=== PATIENT | female | born 1990 | race Hispanic/Latino ===

== ENCOUNTER 2016-11-15 07:26 | Emergency (ER) | payer SELFPAY ==
--- NOTE | 2016-11-15 08:02 | ED PDOC ---
Arrival/HPI - General Historian: Patient - History of Present Illness Time/Duration: < week Symptom Onset: Gradual Symptom Course: Worsening Quality: Pressure Severity Level: Moderate Activities at Onset: Rest Context: Home <Maria Elena Gipson - Last Filed: 11/15/16 09:51> <Dallin Funez - Last Filed: 11/15/16 14:43> - General Chief Complaint: Cough, Cold, Congestion Time Seen by Provider: 11/15/16 07:35 - History of Present Illness Narrative History of Present Illness (Text): 11/15/16 07:59 This is a 26Y F with no PMH here for cough and congestion x 4 days. The cough is described as dry, but feels congestion in her chest. She used Robitussin without relief. Patient states all her children were sick at home with similar symptoms and received antibiotics. She also reports having chills and one episode of diarrhea, but denies nausea/vomiting, sinus tenderness, sore throat or rhinorrhea. She denies any recent travel. The patient also reports of having vaginal discharge x 2 weeks. She says it is white in color and is fishy in odor. She denies sexual activity for quite some time or multiple partners. Her periods are irregular and her LMP was on 5 weeks ago. She has not seen a dispensary clerk since the of her 3rd child who is 2yrs old. She denies any itching, dysuria, frequency or hematuria. She states she has to use a pad due to the amount of discharge and used a douche yesterday to "help clean herself out". (Maria Elena Gipson) Past Medical History - Provider Review Nursing Documentation Reviewed: Yes - Travel History Have you recently traveled outside [place] w/in the past 3 mons?: No - Past History Past History: No Previous - Past Medical History Past Medical History: No Previous <Maria Elena Gipson - Last Filed: 11/15/16 09:51> Family/Social History - Physician Review Nursing Documentation Reviewed: Yes Family/Social History: Diabetes, Hypertension Hx Alcohol Use: No Hx Substance Use: No <Maria Elena Gipson - Last Filed: 11/15/16 09:51> Allergies/Home Meds <Maria Elena Gipson - Last Filed: 11/15/16 09:51> <Dallin Funez - Last Filed: 11/15/16 14:43> Allergies/Adverse Reactions: Allergies clindamycin Allergy (Verified 11/15/16 08:00) ANAPHYLAXIS Review of Systems - Physician Review All systems were reviewed & negative as marked: Yes - Review of Systems Constitutional: Other (chills). absent: Normal, Fevers ENT: Normal. absent: Hearing Changes, Sore Throat, Rhinorrhea, Sinus Congestion Respiratory: Normal, Cough. absent: Sputum Cardiovascular: Normal. absent: Chest Pain, Palpitations Gastrointestinal: Diarrhea. absent: Abdominal Pain, Nausea, Vomiting Genitourinary Female: Vaginal Discharge (white, with smell ). absent: Dysuria, Frequency, Hematuria Musculoskeletal: Normal. absent: Arthralgias, Myalgias Skin: Normal. absent: Rash, Pruritis Neurological: Normal. absent: Headache, Dizziness Endocrine: absent: Diaphoresis <JaronMaria Elena longo - Last Filed: 11/15/16 09:51> Physical Exam Vital Signs Reviewed: Yes Temperature: Afebrile Blood Pressure: Normal Pulse: Tachycardic Respiratory Rate: Normal Appearance: Positive for: Well-Appearing, Non-Toxic, Comfortable Pain Distress: None Mental Status: Positive for: Alert and Oriented X 3 - Systems Exam Head: Present: Atraumatic, Normocephalic Pupils: Present: PERRL Extroacular Muscles: Present: EOMI Conjunctiva: Present: Normal Mouth: Present: Moist Mucous Membranes Pharnyx: Present: ERYTHEMA (mild). No: EXUDATE, TONSILS ENLARGED, Peritonsilar Swelling, Uvular Deviation Neck: Present: Normal Range of Motion Respiratory/Chest: Present: Clear to Auscultation, Good Air Exchange. No: Respiratory Distress, Accessory Muscle Use Cardiovascular: Present: Regular Rate and Rhythm, Normal S1, S2. No: Murmurs Abdomen: Present: Normal Bowel Sounds. No: Tenderness, Distention, Peritoneal Signs Genitourinary/Pelvic Exam: Present: Normal External Genitalia, Vaginal Discharge (white thick ), Cervical os Closed. No: Vaginal Bleeding, Vaginal Lesions, Adenexal Tenderness, Adenexal Mass, Cervical Motion Tendernes, Odor Back: Present: Normal Inspection Upper Extremity: Present: Normal Inspection. No: Cyanosis, Edema Lower Extremity: Present: Normal Inspection. No: Edema Neurological: Present: GCS=15, CN II-XII Intact, Speech Normal Skin: Present: Warm, Dry, Normal Color. No: Rashes Psychiatric: Present: Alert, Oriented x 3, Normal Insight, Normal Concentration <Maria Elena Gipson - Last Filed: 11/15/16 09:51> <Dallin Funez - Last Filed: 11/15/16 14:43> Vital Signs Temp Pulse Resp BP Pulse Ox 11/15/16 09:55 99 H 18 121/63 11/15/16 09:27 80 18 114/79 98 11/15/16 07:50 98.5 F 96 H 18 112/73 98 Medical Decision Making Re-evaluation Time: 09:39 Reassessment Condition: Improving,but remains with symptoms - Lab Interpretations I have reviewed the lab results: Yes Interpretation: Abnormal lab values (mild leuk esterase in urine, no nitrate and few bacteria) <Maria Elena Gipson - Last Filed: 11/15/16 09:51> <Dallin Funez - Last Filed: 11/15/16 14:43> ED Course and Treatment: 11/15/16 08:09 Impression: This is a 26Y F with no PMH here for cough and congestion x 1 day as well as vaginal discharge x 2 weeks. Differential Diagnosis included but are not limited to: URI versus pneumonia, bacterial vaginosis versus STD Plan: -- U/A -- CXR -- Duoneb -- Reassess and disposition Progress Notes: 11/15/16 09:39 CXR showed no active disease. On reevaluation the patient feels better and is in no acute distress. I have discussed the results and plan with the patient, who expresses understanding. Patient given the opportunity to ask question, all questions were answered and there is agreement with the plan to discharge the patient home with prescription for cough and bacterial vaginitis. Patient is stable for discharge. Patient was instructed to follow up with physician/clinic in 1-2 days or return if symptoms persist/worsen or new concerning symptoms arise.. (Maria Elena Gipson) 11/15/16 Patient Seen With Resident: In agreement with resident note which contains more details about the patient. Patient was seen and evaluated with resident. Came up with plan and treatment together. (Dallin Funez) - Lab Interpretations Lab Results: Lab Results 11/15/16 08:33: Urine Color Yellow, Urine Appearance Clear, Urine pH 5.5, Ur Specific [place] >= 1.030, Urine Protein 30 H, Urine Glucose (UA) Negative, Urine Ketones Trace H, Urine Blood Moderate H, Urine Nitrate Negative, Urine Bilirubin Negative, Urine Urobilinogen 1.0 H, Ur Leukocyte Esterase Trace H, Urine RBC 5 - 10, Urine WBC 0 - 2, Ur Epithelial Cells 3 - 4, Urine Bacteria Small - RAD Interpretation Radiology Orders: 11/15/16 08:06 CHEST TWO VIEWS (PA/LAT) [RAD] Stat - Medication Orders Current Medication Orders: Discontinued Medications Albuterol/Ipratropium (Duoneb 3 Mg/0.5 Mg (3 Ml) Ud) 3 ml IH STAT STA Stop: 11/15/16 08:08 Last Admin: 11/15/16 08:40 Dose: 3 ml <Maria Elena Gipson - Last Filed: 11/15/16 09:51> - PA / MONORAIL CHARGER OPERATOR / Resident Statement / has reviewed & agrees with the documentation as recorded. MD/ has examined the patient and agrees with the treatment plan. - Scribe Statement The provider has reviewed the documentation as recorded by the Scribe <Dallin Funez - Last Filed: 11/15/16 14:43> - Scribe Statement Steffi Riggins Provider Scribe Attestation: All medical record entries made by the Scribe were at my direction and personally dictated by me. I have reviewed the chart and agree that the record accurately reflects my personal performance of the history, physical exam, medical decision making, and the department course for this patient. I have also personally directed, reviewed, and agree with the discharge instructions and disposition. (Dallin Funez) Disposition/Present on Arrival - Present on Arrival Any Indicators Present on Arrival: No - Disposition Have Diagnosis and Disposition been Completed?: Yes Disposition Time: 09:40 Patient Plan: Discharge <Maria Elena Gipson - Last Filed: 11/15/16 09:51> <Dallin Funez - Last Filed: 11/15/16 14:43> - Disposition Diagnosis: BV (bacterial vaginosis), URI (upper respiratory infection) Disposition: HOME/ ROUTINE Condition: FAIR Print Language: [place] Additional Instructions: Ms. Coronado, thank you for letting us take care of you today. Your provider was Dr. Gipson. You were treated for cough and vaginal discharge. The emergency medical care you received today was directed at your acute symptoms. If you were prescribed any medication, please fill it and take as directed. It may take several days for your symptoms to resolve. Return to the Emergency Department if your symptoms worsen, do not improve, or if you have any other problems. Please contact your doctor or call one of the physicians/clinics you have been referred to that are listed on the Patient Visit Information form that is included in your discharge packet. Bring any paperwork you were given at discharge with you along with any medications you are taking to your follow up visit. Our treatment cannot replace ongoing medical care by a primary care provider (PCP) outside of the emergency department. Thank you for allowing the [facility] team to be part of your care today. If you had an X-Ray or CT scan: A Radiologist will review the ED reading if any change in treatment is needed we will contact you. If you had an STI test: It will take 48 hours for the results. Please call after 1 week if you have not heard back. Prescriptions: guaiFENesin/Codeine [Robitussin w/Codeine] 10 ml PO Q4H PRN #1 bottle PRN Reason: Cough metroNIDAZOLE [Flagyl] 500 mg PO BID #14 tab Referrals: Miranda Kat MD [Primary Care Provider] - Follow up with primary Forms: [employer] (Turkmen)
[2016-11-15 08:03] VITALS: BMI 34.4
[2016-11-15] MEDS ORDERED: Albuterol-Ipratrop 3 mg / 0.5 (3 ml) UD IH STA (08:07)
[2016-11-15 08:19] VITALS: RESP 18; TEMP 98.5; O2SAT 98
[2016-11-15 08:46] LABS: PH,URINE 5.5 (4.7-8.0); URINE BILIRUBIN NEGATIVE (NEGATIVE); URINE BLOOD MODERATE (NEGATIVE); URINE GLUCOSE (UA) NEGATIVE (NEGATIVE); URINE KETONE TRACE mg/dL (NEGATIVE); URINE LEUKOCYTE ESTERASE TRACE Leu/uL (NEGATIVE); URINE PROTEIN 30 mg/dL (<30 mg/dL)
[2016-11-15 08:49] LABS: URINE APPEARANCE CLEAR (CLEAR); URINE COLOR YELLOW (YELLOW)
[2016-11-15 09:09] LABS: URINE WBC 0 - 2 /hpf (0-6)
[2016-11-15 09:10] LABS: URINE BACTERIA SMALL (NEG)
[2016-11-15 10:19] VITALS: BP 121/63; PULSE 99
--- NOTE | 2016-11-15 10:49 | RAD ---
HISTORY: Shortness of breath COMPARISON: No prior. TECHNIQUE: Chest PA and lateral FINDINGS: LUNGS: The lungs are well inflated. There is patchy airspace disease in the left lower lobe. PLEURA: No significant pleural effusion identified. No pneumothorax apparent. CARDIOVASCULAR: Normal. OSSEOUS STRUCTURES: No significant abnormalities. VISUALIZED UPPER ABDOMEN: Normal. OTHER FINDINGS: None. IMPRESSION: Suspect developing left lower lobe pneumonia. Follow-up after medical management is recommended to ensure complete resolution.
== END 2016-11-15 09:55 | disposition home or self-care (01) ==
LOC: ED 07:26
DX: J06.9 Acute upper respiratory infection, unspecified (principal); N76.0 Acute vaginitis